=== PATIENT | male | born 2000 | race Caucasian/White ===

== ENCOUNTER 2022-01-29 20:09 | Emergency (ER) | payer OTHER ==
--- OUTSIDE RECORDS SUMMARY | 2022-01-29 20:14 | XMS REPORT | Continuity of Care Document ---
:[address] [facility] t Address [address] [place] [address] Dr. Ferguson [address] [place] [id number] Care Team Providers Name Role Phone Unavailable Unavailable Unavailable Problems This patient has no known problems. Allergies, Adverse Reactions, Alerts This patient has no known allergies or adverse reactions. Medications This patient has no known medications. Procedures This patient has no known procedures. Encounters Start End Encounter Admission Attending Care Care Encounter Source Date/Time Date/Time Type Type Clinicians Facility Department ID 2022-01-[address] [facility] [id number] [facility] 13:07:01 Benja ramos [facility] ent Clinics Results This patient has no known results.
[2022-01-29] MEDS ORDERED: THIAMINE 200 MG/2 ML INJ ONE (21:51)
[2022-01-29] MEDS ORDERED: FOLIC ACID 5 MG/ML VIAL ONE (21:52)
[2022-01-29] MEDS ORDERED: NA CHLORIDE 0.9% 1,000 ML ONE (21:52)
[2022-01-29] MEDS ORDERED: NA CHLORIDE 0.9% 100 ML ONE (21:52)
[2022-01-29 22:03] LABS: Absolute Lymphocytes (CBC) 2.2 K/uL (0.7-4.9); Hematocrit 41.4 % (39.6-49.0); MPV 8.7 fL (7.6-11.3); RBC Red Blood Cell Count 4.74 M/uL (4.33-5.43)
--- NOTE | 2022-01-29 22:05 | RAD REPORT ---
EXAM DESCRIPTION: CT - [id number] - 01/29/2022 9:54 pm CLINICAL HISTORY: Trauma, head and neck injury. PAIN COMPARISON: <Comparisons> TECHNIQUE: Axial 5 mm thick images of the head were obtained. Axial 2 mm thick images of the cervical spine were obtained with sagittal and coronal reconstruction images generated and reviewed. All CT scans are performed using dose optimization technique as appropriate and may include automated exposure control or mA/KV adjustment according to patient size. FINDINGS: CT HEAD WITHOUT CONTRAST: No acute hemorrhage, hydrocephalus or extra-axial collection is identified.No areas of brain edema or midline shift. The paranasal sinuses and mastoids are clear.The calvarium is intact. CT CERVICAL SPINE WITHOUT CONTRAST: No fracture or subluxation.No prevertebral soft tissues swelling is identified. IMPRESSION: No acute intracranial or cervical spine findings.
--- NOTE | 2022-01-29 22:06 | RAD REPORT ---
EXAM DESCRIPTION: RAD - Chest Single View - 01/29/2022 9:53 pm CLINICAL HISTORY: CHEST PAIN Chest pain. COMPARISON: No comparisons FINDINGS: Portable technique limits examination quality. The lungs are grossly clear. The heart is normal in size. No displaced fractures. IMPRESSION: No acute intrathoracic process suspected.
[2022-01-29 22:57] LABS: ALT/SGPT 26 U/L (12-78); AST/SGOT 21 U/L (15-37); Albumin 3.9 g/dL (3.4-5.0); Alkaline Phosphatase 72 U/L (45-117); BUN Blood Urea Nitrogen 15 mg/dL (7-18); Bicarbonate 28 mmol/L (21-32); Bilirubin Direct 0.2 mg/dL (0-0.2); Bilirubin Total 0.7 mg/dL (0.2-1.0); C-Reactive Protein < 2.90 mg/L (<3.00); Creatine Phosphokinase 111 U/L (39-308); Glucose Level 92 mg/dL (74-106); Magnesium 2.3 mg/dL (1.8-2.4); Potassium 3.7 mmol/L (3.5-5.1); Protein, Total 7.5 g/dL (6.4-8.2); Sodium Level 140 mmol/L (136-145); Troponin High Sensitivity 4.1 pg/mL (<58.9)
--- NOTE | 2022-01-29 23:11 | EDPHYS ---
Physician Documentation [facility] Name: Didier Anton Age: 21 yrs Sex: Male : 2000 Arrival Date: 01/29/2022 Time: 20:15 Bed 7 Private MD: CON Physician Umesh Bruno HPI: 01/29 21:28 This 21 yrs old Male presents to ER via Ambulatory with complaints of yessica Numbness Of Hand, Knee Pain - Left. 21:28 The patient or guardian reports weakness. The complaints affect the left hand yessica diffusely, right hand diffusely. Context: The problem was sustained at an unknown location. Onset: The symptoms/episode began/occurred 1 week(s) ago. Modifying factors: The symptoms are alleviated by nothing, the symptoms are aggravated by movement. Associated signs and symptoms: The patient has no apparent associated signs or symptoms. Severity of symptoms: At their worst the symptoms were mild, moderate, in the emergency department the symptoms are unchanged. The patient has not experienced similar symptoms in the past. Historical: - Allergies: 20:27 No Known Allergies; ld1 - Home Meds: 20:27 Fluoxetine Oral [Active]; ld1 - PMHx: 20:27 Depressive disorder; Anxiety; Asthma; ld1 - PSHx: 20:27 None; ld1 - Immunization history:: Adult Immunizations up to date, Client reports receiving the 2nd dose of the Covid vaccine. - Social history:: Smoking status: Patient denies any tobacco usage or history of. Patient/guardian denies using alcohol. - Family history:: not pertinent. ROS: 21:28 Constitutional: Negative for fever, chills, and weight loss, Eyes: Negative for injury, yessica pain, redness, and discharge, ENT: Negative for injury, pain, and discharge, Neck: Negative for injury, pain, and swelling, Cardiovascular: Negative for chest pain, palpitations, and edema, Respiratory: Negative for shortness of breath, cough, wheezing, and pleuritic chest pain, Abdomen/GI: Negative for abdominal pain, nausea, vomiting, diarrhea, and constipation, Back: Negative for injury and pain, : Negative for injury, bleeding, discharge, and swelling, MS/Extremity: Negative for injury and deformity, Skin: Negative for injury, rash, and discoloration, Psych: Negative for depression, anxiety, suicide ideation, homicidal ideation, and hallucinations, Allergy/Immunology: Negative for hives, rash, and allergies, Endocrine: Negative for neck swelling, polydipsia, polyuria, polyphagia, and marked weight changes, Hematologic/Lymphatic: Negative for swollen nodes, abnormal bleeding, and unusual bruising. 21:28 Neuro: Positive for gait disturbance, numbness, weakness, of the right arm, left arm, right leg and left leg. Exam: 21:28 Constitutional: This is a well developed, well nourished patient who is awake, alert, yessica and in no acute distress. Head/Face: Normocephalic, atraumatic. Eyes: Pupils equal round and reactive to light, extra-ocular motions intact. Lids and lashes normal. Conjunctiva and sclera are non-icteric and not injected. Cornea within normal limits. Periorbital areas with no swelling, redness, or edema. ENT: Nares patent. No nasal discharge, no septal abnormalities noted. Tympanic membranes are normal and external auditory canals are clear. Oropharynx with no redness, swelling, or masses, exudates, or evidence of obstruction, uvula midline. Mucous membranes moist. Neck: Trachea midline, no thyromegaly or masses palpated, and no cervical lymphadenopathy. Supple, full range of motion without nuchal rigidity, or vertebral point tenderness. No Meningismus. Chest/axilla: Normal chest wall appearance and motion. Nontender with no deformity. No lesions are appreciated. Cardiovascular: Regular rate and rhythm with a normal S1 and S2. No gallops, murmurs, or rubs. Normal PMI, no JVD. No pulse deficits. Respiratory: Lungs have equal breath sounds bilaterally, clear to auscultation and percussion. No rales, rhonchi or wheezes noted. No increased work of breathing, no retractions or nasal flaring. Abdomen/GI: Soft, non-tender, with normal bowel sounds. No distension or tympany. No guarding or rebound. No evidence of tenderness throughout. Back: No spinal tenderness. No costovertebral tenderness. Full range of motion. Male : Normal genitalia with no discharge or lesions. Skin: Warm, dry with normal turgor. Normal color with no rashes, no lesions, and no evidence of cellulitis. MS/ Extremity: Pulses equal, no cyanosis. Neurovascular intact. Full, normal range of motion. Neuro: Awake and alert, GCS 15, oriented to person, place, time, and situation. Cranial nerves II-XII grossly intact. Motor strength 5/5 in all extremities. Sensory grossly intact. Cerebellar exam normal. Normal gait. Psych: Awake, alert, with orientation to person, place and time. Behavior, mood, and affect are within normal limits. 22:41 ECG was reviewed by the Attending Physician. [facility] Vital Signs: 20:27 BP 125 / 80; Pulse 82; Resp 18; Temp 98.9(TE); Pulse Ox 100% on R/A; Weight 79.38 kg; ld1 Height 5 ft. 11 in. (180.34 cm); Pain 0/10; 23:25 BP 112 / 67; Pulse 65; Resp 16; Pulse Ox 98% on R/A; lp1 20:27 Body Mass Index 24.41 (79.38 kg, 180.34 cm) ld1 MDM: 20:57 Patient medically screened. [facility] 22:42 Data reviewed: vital signs, nurses notes, lab test result(s), EKG, radiologic studies, [facility] CT scan, plain films. Data interpreted: conveyor monitor: rate is 82 beats/min, rhythm is regular, Pulse oximetry: on room air is 100 %. Test interpretation: by ED physician or midlevel provider: ECG, plain radiologic studies. Counseling: I had a detailed discussion with the patient and/or guardian regarding: the historical points, exam findings, and any diagnostic results supporting the discharge/admit diagnosis, lab results, radiology results, the need for outpatient follow up, for definitive care, a family practitioner, a neurologist. 01/29 21:28 Order name: Basic Metabolic Panel; Complete Time: 23:10 [facility] 01/29 21:28 Order name: CBC with Diff; Complete Time: 23:10 [facility] 01/29 21:28 Order name: LFT's; Complete Time: 23:10 [facility] 01/29 21:28 Order name: Magnesium; Complete Time: 23:10 [facility] 01/29 21:28 Order name: Troponin HS; Complete Time: 23:10 [facility] 01/29 21:28 Order name: Sed Rate; Complete Time: 23:10 [facility] 01/29 21:28 Order name: XRAY Chest (1 view); Complete Time: 22:40 [facility] 01/29 21:28 Order name: EKG; Complete Time: 21:28 [facility] 01/29 21:28 Order name: CT Head C Spine; Complete Time: 22:40 [facility] 01/29 21:28 Order name: CRP; Complete Time: 23:10 [facility] 01/29 21:28 Order name: CK; Complete Time: 23:10 [facility] 01/29 21:28 Order name: Cardiac monitoring; Complete Time: 22:17 [facility] 01/29 21:28 Order name: EKG - Nurse/Tech; Complete Time: 22:17 [facility] 01/29 21:28 Order name: IV Saline Lock; Complete Time: :45 [facility] 01/29 21:28 Order name: Labs collected and sent; Complete Time: :45 [facility] 01/29 21: Order name: O2 Per Protocol; Complete Time: :45 [facility] 01/29 21: Order name: O2 Sat Monitoring; Complete Time: :45 [facility] EC:41 Rate is 73 beats/min. Rhythm is regular. QRS [place] is Normal. [place] interval is normal. QRS yessica interval is normal. QT interval is normal. No Q waves. T waves are Normal. No ST changes noted. Clinical impression: NSR w/ Non-specific ST/T Changes and No evidence of ischemia. Interpreted by me. Reviewed by me. Administered Medications: 22:10 Drug: foLIC Acid 1 mg Route: IVPB; Site: right antecubital; lp1 23:25 Follow up: IV Status: Completed infusion; IV Intake: 50ml lp1 22:10 Drug: NS 0.9% 1000 ml Route: IV; Rate: 1 bolus; Site: right antecubital; lp1 23:25 Follow up: IV Status: Completed infusion; IV Intake: 1000ml lp1 22:17 Drug: Thiamine 100 mg Route: IV; Rate: bolus; Site: right antecubital; lp1 23:25 Follow up: IV Status: Completed infusion; IV Intake: 50ml lp1 Disposition Summary: 01/29/22 23:10 Discharge Ordered Location: Home yessica Problem: new yessica Symptoms: have improved yessica Condition: Stable yessica Diagnosis - Weakness yessica - Muscle weakness (generalized) yessica Followup: yessica - With: Private Physician - When: 2 - 3 days - Reason: Recheck today's complaints, Continuance of care, Re-evaluation by your physician Followup: yessica - With: - When: 2 - 3 days - Reason: Recheck today's complaints, Continuance of care, Re-evaluation by your physician Discharge Instructions: - Discharge Summary Sheet yessica - Weakness yessica - Weakness, [id number] yesscia - Deconditioning yessica Forms: - Medication Reconciliation Form yessica - Thank You Letter yessica - Antibiotic Education yessica - Prescription Opioid Use yessica Signatures: Dispatcher [employer] EDUmesh Frankel MD MD cha Pena, Laura RN RN lp1 Saritha Ardon RN RN ld1
--- NOTE | 2022-01-29 23:11 | ER ---
Nurse's Notes [facility] Name: Didier Anton Age: 21 yrs Sex: Male : 2000 Arrival Date: 01/29/2022 Time: 20:15 Bed 7 Private MD: Diagnosis: Weakness;Muscle weakness (generalized) Presentation: 01/29 20:27 Chief complaint: Patient states: Numbness and tingling to ANNA hands and left knee - on ld1 and off for the past the past year. Over the past week hands have become difficult to use. Coronavirus screen: At this time, the client does not indicate any symptoms associated with coronavirus-19. Ebola Screen: No symptoms or risks identified at this time. Initial Sepsis Screen: Does the patient meet any 2 criteria? No. Patient's initial sepsis screen is negative. Does the patient have a suspected source of infection? No. Patient's initial sepsis screen is negative. Risk Assessment: Do you want to hurt yourself or someone else? Patient reports no desire to harm self or others. Onset of symptoms was January 29, 2022. 20:27 Method Of Arrival: Ambulatory ld1 20:27 Acuity: OMAR 3 ld1 Triage Assessment: 20:27 General: Appears in no apparent distress. uncomfortable, Behavior is cooperative, ld1 appropriate for age, anxious. Pain: Denies pain. EENT: No signs and/or symptoms were reported regarding the EENT system. Neuro: Level of Consciousness is awake, alert, obeys commands, Oriented to person, place, time, situation. Respiratory: Airway is patent Respiratory effort is even, unlabored, Respiratory pattern is regular, symmetrical. Derm: Reports tingling, in ANNA hands, feet and left knee. Historical: - Allergies: 20:27 No Known Allergies; ld1 - Home Meds: 20:27 Fluoxetine Oral [Active]; ld1 - PMHx: 20:27 Depressive disorder; Anxiety; Asthma; ld1 - PSHx: 20:27 None; ld1 - Immunization history:: Adult Immunizations up to date, Client reports receiving the 2nd dose of the Covid vaccine. - Social history:: Smoking status: Patient denies any tobacco usage or history of. Patient/guardian denies using alcohol. - Family history:: not pertinent. Screenin:44 Abuse screen: Denies threats or abuse. Denies injuries from another. Nutritional lp1 screening: No deficits noted. Tuberculosis screening: No symptoms or risk factors identified. Fall Risk None identified. Assessment: 21:30 General: Appears in no apparent distress. Behavior is calm, cooperative. Pain: lp1 Complains of pain in right hand, left hand and left knee Quality of pain is described as burning. Neuro: Level of Consciousness is awake, alert, obeys commands, Reports paresthesias in right hand and left hand weakness in right hand and left hand. Cardiovascular: Patient's skin is warm and dry. Respiratory: Respiratory effort is even, unlabored. GI: No signs and/or symptoms were reported involving the gastrointestinal system. : No signs and/or symptoms were reported regarding the genitourinary system. EENT: No signs and/or symptoms were reported regarding the EENT system. Derm: Skin is pink, warm \T\ dry. Musculoskeletal: Range of motion: intact in all extremities. 23:40 Reassessment: Dr. Bruno at bedside to discuss results with patient and mother at lp1 bedside. Vital Signs: 20:27 BP 125 / 80; Pulse 82; Resp 18; Temp 98.9(TE); Pulse Ox 100% on R/A; Weight 79.38 kg; ld1 Height 5 ft. 11 in. (180.34 cm); Pain 0/10; 23:25 BP 112 / 67; Pulse 65; Resp 16; Pulse Ox 98% on R/A; lp1 20:27 Body Mass Index 24.41 (79.38 kg, 180.34 cm) ld1 ED Course: 20:15 Patient arrived in ED. kz 20:27 Arm band placed on left wrist. ld1 20:30 Triage completed. ld1 20:57 Umesh Bruno MD is Attending Physician. yessica 21:43 Elizabeth Lewis, TMI is Primary Nurse. lp1 21:43 Inserted saline lock: 20 gauge in right antecubital area, using aseptic technique. lp1 Blood collected. 21:45 Patient has correct armband on for positive identification. lp1 21:55 XRAY Chest (1 view) In Process Unspecified. EDMS 21:56 CT Head C Spine In Process Unspecified. EDMS 23:10 Jonathan Robbins MD is Referral Physician. yessica 23:25 No provider procedures requiring assistance completed. lp1 23:40 IV discontinued, No redness/swelling at site. Pressure dressing applied. lp1 Administered Medications: 22:10 Drug: foLIC Acid 1 mg Route: IVPB; Site: right antecubital; lp1 23:25 Follow up: IV Status: Completed infusion; IV Intake: 50ml lp1 22:10 Drug: NS 0.9% 1000 ml Route: IV; Rate: 1 bolus; Site: right antecubital; lp1 23:25 Follow up: IV Status: Completed infusion; IV Intake: 1000ml lp1 22:17 Drug: Thiamine 100 mg Route: IV; Rate: bolus; Site: right antecubital; lp1 23:25 Follow up: IV Status: Completed infusion; IV Intake: 50ml lp1 Intake: 23:25 IV: 1000ml; Total: 1000ml. lp1 23:25 IV: 50ml; Total: 1050ml. lp1 23:25 IV: 50ml; Total: 1100ml. lp1 Outcome: 23:10 Discharge ordered by . yessica 23:41 Discharged to home ambulatory, with family. lp1 23:41 Condition: good 23:41 Discharge instructions given to patient, family, Instructed on discharge instructions, follow up and referral plans. Demonstrated understanding of instructions, follow-up care. 23:41 Patient left the ED. lp1 Signatures: Dispatcher [employer] Umesh Lira MD MD cha Pena, Laura, RN RN lp1 Saritha Ardon RN RN ld1 Alejandrina Bailon
[2022-01-30 09:09] VITALS: TEMP 98.9
[2022-01-30 09:10] VITALS: BP 112/67; O2SAT 98
== END 2022-01-29 23:41 | disposition home or self-care (01) ==
LOC: ER 20:09
DX: M62.81 Muscle weakness (generalized) (principal); M25.562 Pain in left knee; R26.9 Unspecified abnormalities of gait and mobility; F41.8 Other specified anxiety disorders
CPT/HCPCS: 96365; 93005; 85025; 80048; 36415; 83735; 82550; 80076; 85652; 84484; 86140; 70450; 72125; 71045; 99284; J3411; J7030